=== PATIENT | male | born 1935 | race Caucasian/White ===

== ENCOUNTER → 2020-06-04 08:36 | Outpatient (BNVA) | payer MEDICARE, SELFPAY | PROVIDERS: PCP Internal Medicine; Visit Provider Internal Medicine | DX: Z95.2 Presence of prosthetic heart valve (principal); Z51.81 Encounter for therapeutic drug level monitoring; Z79.01 Long term (current) use of anticoagulants | CPT/HCPCS: 85610; 99211 ==

== ENCOUNTER → 2020-07-02 09:09 | Outpatient (BNVA) | payer MEDICARE, SELFPAY | PROVIDERS: PCP Internal Medicine; Visit Provider Internal Medicine | DX: Z95.2 Presence of prosthetic heart valve (principal); Z51.81 Encounter for therapeutic drug level monitoring; Z79.01 Long term (current) use of anticoagulants | CPT/HCPCS: 85610; 99211 ==

== ENCOUNTER → 2020-07-30 09:10 | Outpatient (BNVA) | payer MEDICARE, SELFPAY | PROVIDERS: PCP Internal Medicine; Visit Provider Internal Medicine | DX: Z95.2 Presence of prosthetic heart valve (principal); Z51.81 Encounter for therapeutic drug level monitoring; Z79.01 Long term (current) use of anticoagulants | CPT/HCPCS: 85610; 99211 ==

== ENCOUNTER → 2020-08-27 08:57 | Outpatient (BNVA) | payer MEDICARE, SELFPAY | PROVIDERS: PCP Internal Medicine; Visit Provider Internal Medicine | DX: Z95.2 Presence of prosthetic heart valve (principal); Z51.81 Encounter for therapeutic drug level monitoring; Z79.01 Long term (current) use of anticoagulants | CPT/HCPCS: 85610; 99211 ==

== ENCOUNTER → 2020-09-24 08:56 | Outpatient (BNVA) | payer MEDICARE, SELFPAY | PROVIDERS: PCP Internal Medicine; Visit Provider Internal Medicine | DX: Z95.2 Presence of prosthetic heart valve (principal); Z51.81 Encounter for therapeutic drug level monitoring; Z79.01 Long term (current) use of anticoagulants | CPT/HCPCS: 85610; 99211 ==

== ENCOUNTER → 2020-10-08 09:23 | Outpatient (BNVA) | payer MEDICARE, SELFPAY | PROVIDERS: PCP Internal Medicine; Visit Provider Internal Medicine | DX: Z95.2 Presence of prosthetic heart valve (principal); Z51.81 Encounter for therapeutic drug level monitoring; Z79.01 Long term (current) use of anticoagulants | CPT/HCPCS: 85610; 99211 ==

== ENCOUNTER → 2020-11-05 09:23 | Outpatient (BNVA) | payer MEDICARE, SELFPAY | PROVIDERS: PCP Internal Medicine; Visit Provider Internal Medicine | DX: Z95.2 Presence of prosthetic heart valve (principal); Z51.81 Encounter for therapeutic drug level monitoring; Z79.01 Long term (current) use of anticoagulants | CPT/HCPCS: 85610; 99211 ==

== ENCOUNTER → 2020-12-03 09:38 | Outpatient (BNVA) | payer MEDICARE, SELFPAY | PROVIDERS: PCP Internal Medicine; Visit Provider Internal Medicine | DX: Z95.2 Presence of prosthetic heart valve (principal); Z79.01 Long term (current) use of anticoagulants; Z51.81 Encounter for therapeutic drug level monitoring | CPT/HCPCS: 85610; 99211 ==

== ENCOUNTER → 2020-12-29 10:26 | Outpatient (BNVA) | payer MEDICARE, SELFPAY | PROVIDERS: PCP Internal Medicine; Visit Provider Internal Medicine | DX: Z95.2 Presence of prosthetic heart valve (principal); Z51.81 Encounter for therapeutic drug level monitoring; Z79.01 Long term (current) use of anticoagulants | CPT/HCPCS: 85610; 99211 ==

== ENCOUNTER → 2021-01-13 08:02 | Outpatient (BNVA) | payer MEDICARE, SELFPAY | PROVIDERS: PCP Internal Medicine; Visit Provider Internal Medicine | DX: Z95.2 Presence of prosthetic heart valve (principal); Z51.81 Encounter for therapeutic drug level monitoring; Z79.01 Long term (current) use of anticoagulants | CPT/HCPCS: 85610; 99211 ==

== ENCOUNTER → 2021-01-15 09:46 | Outpatient (BNVA) | payer MEDICARE, SELFPAY | PROVIDERS: PCP Internal Medicine; Visit Provider Internal Medicine | DX: Z95.2 Presence of prosthetic heart valve (principal); Z51.81 Encounter for therapeutic drug level monitoring; Z79.01 Long term (current) use of anticoagulants | CPT/HCPCS: 85610; 99211 ==

== ENCOUNTER → 2021-01-19 15:23 | Outpatient (BNVA) | payer MEDICARE, SELFPAY | PROVIDERS: PCP Internal Medicine; Visit Provider Internal Medicine | DX: Z95.2 Presence of prosthetic heart valve (principal); Z51.81 Encounter for therapeutic drug level monitoring; Z79.01 Long term (current) use of anticoagulants | CPT/HCPCS: 85610; 99211 ==

== ENCOUNTER → 2021-01-26 09:11 | Outpatient (BNVA) | payer MEDICARE, SELFPAY | PROVIDERS: PCP Internal Medicine; Visit Provider Internal Medicine | DX: Z95.2 Presence of prosthetic heart valve (principal); Z51.81 Encounter for therapeutic drug level monitoring; Z79.01 Long term (current) use of anticoagulants | CPT/HCPCS: 85610; 99211 ==

== ENCOUNTER → 2021-02-24 09:39 | Outpatient (BNVA) | payer MEDICARE, SELFPAY | PROVIDERS: PCP Internal Medicine; Visit Provider Internal Medicine | DX: Z95.2 Presence of prosthetic heart valve (principal); Z51.81 Encounter for therapeutic drug level monitoring; Z79.01 Long term (current) use of anticoagulants | CPT/HCPCS: 85610; 99211 ==

== ENCOUNTER → 2021-03-24 08:57 | Outpatient (BNVA) | payer MEDICARE, SELFPAY | PROVIDERS: PCP Internal Medicine; Visit Provider Internal Medicine | DX: Z95.2 Presence of prosthetic heart valve (principal); Z79.01 Long term (current) use of anticoagulants; Z51.81 Encounter for therapeutic drug level monitoring | CPT/HCPCS: 85610; 99211 ==

== ENCOUNTER → 2021-04-21 09:30 | Outpatient (BNVA) | payer MEDICARE, SELFPAY | PROVIDERS: PCP Internal Medicine; Visit Provider Internal Medicine | DX: Z95.2 Presence of prosthetic heart valve (principal); Z51.81 Encounter for therapeutic drug level monitoring; Z79.01 Long term (current) use of anticoagulants | CPT/HCPCS: 85610; 99211 ==

== ENCOUNTER → 2021-05-05 14:03 | Outpatient (BNVA) | payer MEDICARE, SELFPAY | PROVIDERS: PCP Internal Medicine; Visit Provider Internal Medicine | DX: Z95.2 Presence of prosthetic heart valve (principal); Z51.81 Encounter for therapeutic drug level monitoring; Z79.01 Long term (current) use of anticoagulants | CPT/HCPCS: 85610; 99211 ==

== ENCOUNTER → 2021-05-27 14:49 | Outpatient (BNVA) | payer MEDICARE, SELFPAY | PROVIDERS: PCP Internal Medicine; Visit Provider Internal Medicine | DX: Z95.2 Presence of prosthetic heart valve (principal); Z51.81 Encounter for therapeutic drug level monitoring; Z79.01 Long term (current) use of anticoagulants | CPT/HCPCS: 85610; 99211 ==

== ENCOUNTER → 2021-06-03 08:36 | Outpatient (BNVA) | payer MEDICARE, SELFPAY | PROVIDERS: PCP Internal Medicine; Visit Provider Internal Medicine | DX: Z95.2 Presence of prosthetic heart valve (principal); Z51.81 Encounter for therapeutic drug level monitoring; Z79.01 Long term (current) use of anticoagulants | CPT/HCPCS: 85610; 99211 ==

== ENCOUNTER → 2021-06-29 08:56 | Outpatient (BNVA) | payer MEDICARE, SELFPAY | PROVIDERS: PCP Internal Medicine; Visit Provider Internal Medicine | DX: Z95.2 Presence of prosthetic heart valve (principal); Z51.81 Encounter for therapeutic drug level monitoring; Z79.01 Long term (current) use of anticoagulants | CPT/HCPCS: 85610; 99211 ==

== ENCOUNTER → 2021-07-20 09:37 | Outpatient (BNVA) | payer MEDICARE, SELFPAY | PROVIDERS: PCP Internal Medicine; Visit Provider Internal Medicine | DX: Z95.2 Presence of prosthetic heart valve (principal); Z51.81 Encounter for therapeutic drug level monitoring; Z79.01 Long term (current) use of anticoagulants | CPT/HCPCS: 85610; 99211 ==

== ENCOUNTER → 2021-08-19 14:09 | Outpatient (BNVA) | payer MEDICARE, SELFPAY | PROVIDERS: PCP Internal Medicine; Visit Provider Internal Medicine | DX: Z95.2 Presence of prosthetic heart valve (principal); Z51.81 Encounter for therapeutic drug level monitoring; Z79.01 Long term (current) use of anticoagulants | CPT/HCPCS: 85610; 99211 ==

== ENCOUNTER → 2021-09-15 10:09 | Outpatient (BNVA) | payer MEDICARE, SELFPAY | PROVIDERS: PCP Internal Medicine; Visit Provider Internal Medicine | DX: Z95.2 Presence of prosthetic heart valve (principal); Z51.81 Encounter for therapeutic drug level monitoring; Z79.01 Long term (current) use of anticoagulants | CPT/HCPCS: 85610; 99211 ==

== ENCOUNTER → 2021-10-13 08:50 | Outpatient (BNVA) | payer MEDICARE, SELFPAY | PROVIDERS: PCP Internal Medicine; Visit Provider Internal Medicine | DX: Z95.2 Presence of prosthetic heart valve (principal); Z51.81 Encounter for therapeutic drug level monitoring; Z79.01 Long term (current) use of anticoagulants | CPT/HCPCS: 85610; 99211 ==

== ENCOUNTER → 2021-11-06 09:28 | Outpatient (BNVA) | payer MEDICARE, SELFPAY | PROVIDERS: PCP Internal Medicine; Visit Provider Internal Medicine | DX: Z95.2 Presence of prosthetic heart valve (principal); Z51.81 Encounter for therapeutic drug level monitoring; Z79.01 Long term (current) use of anticoagulants | CPT/HCPCS: 85610; 99211 ==

== ENCOUNTER → 2021-11-23 09:39 | Outpatient (BNVA) | payer MEDICARE, SELFPAY | PROVIDERS: PCP Internal Medicine; Visit Provider Internal Medicine | DX: Z95.2 Presence of prosthetic heart valve (principal); Z79.01 Long term (current) use of anticoagulants; Z51.81 Encounter for therapeutic drug level monitoring | CPT/HCPCS: 85610; 99211 ==

== ENCOUNTER → 2021-12-16 09:18 | Outpatient (BNVA) | payer MEDICARE, SELFPAY | PROVIDERS: PCP Internal Medicine; Visit Provider Internal Medicine | DX: Z95.2 Presence of prosthetic heart valve (principal); Z79.01 Long term (current) use of anticoagulants; Z51.81 Encounter for therapeutic drug level monitoring | CPT/HCPCS: 85610; 99211 ==

== ENCOUNTER → 2022-01-20 10:43 | Outpatient (BNVA) | payer MEDICARE, SELFPAY | PROVIDERS: PCP Internal Medicine; Visit Provider Internal Medicine | DX: Z95.2 Presence of prosthetic heart valve (principal); Z79.01 Long term (current) use of anticoagulants; Z51.81 Encounter for therapeutic drug level monitoring | CPT/HCPCS: 85610; 99211 ==

== ENCOUNTER → 2022-02-17 10:31 | Outpatient (BNVA) | payer MEDICARE, SELFPAY | PROVIDERS: PCP Internal Medicine; Visit Provider Internal Medicine | DX: Z95.2 Presence of prosthetic heart valve (principal); Z51.81 Encounter for therapeutic drug level monitoring; Z79.01 Long term (current) use of anticoagulants | CPT/HCPCS: 85610; 99211 ==

== ENCOUNTER → 2022-02-19 08:10 | Outpatient (BNVA) | payer MEDICARE, SELFPAY | PROVIDERS: PCP Internal Medicine; Visit Provider Internal Medicine | DX: Z95.2 Presence of prosthetic heart valve (principal); Z79.01 Long term (current) use of anticoagulants; Z51.81 Encounter for therapeutic drug level monitoring | CPT/HCPCS: 85610; 99211 ==

== ENCOUNTER → 2022-02-25 09:29 | Outpatient (BNVA) | payer MEDICARE, SELFPAY | PROVIDERS: PCP Internal Medicine; Visit Provider Internal Medicine | DX: Z95.2 Presence of prosthetic heart valve (principal); Z51.81 Encounter for therapeutic drug level monitoring; Z79.01 Long term (current) use of anticoagulants | CPT/HCPCS: 85610; 99212 ==

== ENCOUNTER → 2022-03-02 13:00 | Outpatient (BNVA) | payer MEDICARE, SELFPAY | PROVIDERS: PCP Internal Medicine; Visit Provider Internal Medicine | DX: Z95.2 Presence of prosthetic heart valve (principal); Z51.81 Encounter for therapeutic drug level monitoring; Z79.01 Long term (current) use of anticoagulants | CPT/HCPCS: 85610; 99211 ==

== ENCOUNTER → 2022-03-09 09:37 | Outpatient (BNVA) | payer MEDICARE, SELFPAY | PROVIDERS: PCP Internal Medicine; Visit Provider Internal Medicine | DX: Z95.2 Presence of prosthetic heart valve (principal); Z79.01 Long term (current) use of anticoagulants; Z51.81 Encounter for therapeutic drug level monitoring | CPT/HCPCS: 85610; 99211 ==

== ENCOUNTER → 2022-03-16 09:44 | Outpatient (BNVA) | payer MEDICARE, SELFPAY | PROVIDERS: PCP Internal Medicine; Visit Provider Internal Medicine | DX: Z95.2 Presence of prosthetic heart valve (principal); Z79.01 Long term (current) use of anticoagulants; Z51.81 Encounter for therapeutic drug level monitoring | CPT/HCPCS: 85610; 99211 ==

== ENCOUNTER → 2022-04-02 09:36 | Outpatient (BNVA) | payer MEDICARE, SELFPAY | PROVIDERS: PCP Internal Medicine; Visit Provider Internal Medicine | DX: Z95.2 Presence of prosthetic heart valve (principal); Z79.01 Long term (current) use of anticoagulants; Z51.81 Encounter for therapeutic drug level monitoring | CPT/HCPCS: 85610; 99211 ==

== ENCOUNTER → 2022-04-22 13:33 | Outpatient (BNVA) | payer MEDICARE, SELFPAY | PROVIDERS: PCP Internal Medicine; Visit Provider Internal Medicine | DX: Z95.2 Presence of prosthetic heart valve (principal); Z79.01 Long term (current) use of anticoagulants; Z51.81 Encounter for therapeutic drug level monitoring | CPT/HCPCS: 85610; 99211 ==

== ENCOUNTER → 2022-04-27 09:41 | Outpatient (BNVA) | payer MEDICARE, SELFPAY | PROVIDERS: PCP Internal Medicine; Visit Provider Internal Medicine | DX: Z95.2 Presence of prosthetic heart valve (principal); Z79.01 Long term (current) use of anticoagulants; Z51.81 Encounter for therapeutic drug level monitoring | CPT/HCPCS: 85610; 99211 ==

== ENCOUNTER → 2022-05-11 09:29 | Outpatient (BNVA) | payer MEDICARE, SELFPAY | PROVIDERS: PCP Internal Medicine; Visit Provider Internal Medicine | DX: Z95.2 Presence of prosthetic heart valve (principal); Z79.01 Long term (current) use of anticoagulants; Z51.81 Encounter for therapeutic drug level monitoring | CPT/HCPCS: 85610; 99211 ==

== ENCOUNTER → 2022-05-27 10:13 | Outpatient (BNVA) | payer MEDICARE, SELFPAY | PROVIDERS: PCP Internal Medicine; Visit Provider Internal Medicine | DX: Z95.2 Presence of prosthetic heart valve (principal); Z79.01 Long term (current) use of anticoagulants; Z51.81 Encounter for therapeutic drug level monitoring | CPT/HCPCS: 85610; 99211 ==

== ENCOUNTER → 2022-05-31 11:26 | Outpatient (BNVA) | payer MEDICARE, SELFPAY | PROVIDERS: PCP Internal Medicine; Visit Provider Internal Medicine | DX: Z95.2 Presence of prosthetic heart valve (principal); Z79.01 Long term (current) use of anticoagulants; Z51.81 Encounter for therapeutic drug level monitoring | CPT/HCPCS: 85610; 99211 ==

== ENCOUNTER → 2022-06-08 11:12 | Outpatient (BNVA) | payer MEDICARE, SELFPAY | PROVIDERS: PCP Internal Medicine; Visit Provider Internal Medicine | DX: I26.99 Other pulmonary embolism without acute cor pulmonale (principal); Z79.01 Long term (current) use of anticoagulants; Z51.81 Encounter for therapeutic drug level monitoring | CPT/HCPCS: 85610; 99211 ==

== ENCOUNTER → 2022-06-22 09:16 | Outpatient (BNVA) | payer MEDICARE, SELFPAY | PROVIDERS: PCP Internal Medicine; Visit Provider Internal Medicine | DX: Z79.01 Long term (current) use of anticoagulants (principal) | CPT/HCPCS: 85610; 99211 ==

== ENCOUNTER 2022-06-22 09:52 | Outpatient (REF) | payer MEDICARE, SELFPAY ==
--- NOTE | ~2022-06-22 | XR_ITS ---
EXAMINATION: XR CHEST CLINICAL INFORMATION: Asbestos exposure COMPARISON: Previous chest CT from 2013 and chest x-ray from 2012 TECHNIQUE: 2 views of the chest were obtained. FINDINGS: The cardiac silhouette is enlarged. Hilar and mediastinal contours are unremarkable. There are extensive bilateral calcified pleural plaques. This appears increased from 2012 chest x-ray. There is new blunting at the costophrenic angles questionable for small bilateral pleural effusions or pleural thickening. There is question of increasing airspace disease at the right lung base versus increasing interstitial disease. There are degenerative changes of the spine. There are median sternotomy wires. XR/XR chest 2V IMPRESSION: Increasing bilateral calcified pleural plaques. Question increasing airspace disease at the right lung base versus increasing interstitial disease. New blunting at the costophrenic angles questionable for small bilateral pleural effusions or pleural thickening. Findings could be better assessed with chest CT scan if clinically indicated.
== END 2022-06-22 09:53 | disposition home or self-care (01) ==
LOC: HO.XRAY 09:52
PROVIDERS: PCP Internal Medicine; Visit Provider Internal Medicine
DX: Z77.090 Contact with and (suspected) exposure to asbestos (principal); Z95.2 Presence of prosthetic heart valve; Z51.81 Encounter for therapeutic drug level monitoring; Z79.01 Long term (current) use of anticoagulants
CPT/HCPCS: 71046; 85610; 99211

== ENCOUNTER → 2022-07-02 08:52 | Outpatient (BNVA) | payer MEDICARE, SELFPAY | PROVIDERS: PCP Internal Medicine; Visit Provider Internal Medicine | DX: Z95.2 Presence of prosthetic heart valve (principal); Z79.01 Long term (current) use of anticoagulants; Z51.81 Encounter for therapeutic drug level monitoring | CPT/HCPCS: 85610; 99211 ==

== ENCOUNTER → 2022-07-13 09:42 | Outpatient (BNVA) | payer MEDICARE, SELFPAY | PROVIDERS: PCP Internal Medicine; Visit Provider Internal Medicine | DX: Z95.2 Presence of prosthetic heart valve (principal); Z79.01 Long term (current) use of anticoagulants; Z51.81 Encounter for therapeutic drug level monitoring | CPT/HCPCS: 85610; 99211 ==

== ENCOUNTER 2022-07-21 08:42 | Outpatient (REF) | payer MEDICARE, SELFPAY ==
--- NOTE | ~2022-07-21 | CT_ITS ---
EXAMINATION: CT CHEST WITH CONTRAST CLINICAL INFORMATION: Pleural plaque. COMPARISON: Chest x-ray 06/22/[address] chest 02/02/2013 TECHNIQUE: Multidetector volumetric CT imaging of the chest was obtained after the administration of 65 mL of Omnipaque 350 intravenous contrast without immediate adverse reactions. Axial MIP volume rendering provided. Sagittal and coronal reformatted images were obtained. This CT examination was performed using dose optimization techniques as appropriate, variously including the following: *Automated exposure control *Adjustment of mA and/or kV according to patient size (this includes techniques or standardized protocols for targeted exams where dose is matched to indication/reason for exam; i.e. extremities or head) *Use of iterative reconstruction technique DLP: 80 mGy-cm FINDINGS: OFFICIAL GREETER: Hyperinflated lungs with scattered patchy opacities in both mid and lower lobes and pleural calcified plaques. LUNGS: Mild centrilobular emphysematous changes of both lungs without acute pneumonic consolidation. There is a minimal subpleural reticular thickening seen in both lower lobes and both upper lobes likely chronic changes. No large pulmonary nodule or mass visualized. Previously visualized 2 pulmonary nodules in left lower lobe are not seen at this time. There is a 4 mm nodule adjacent to major fissure in right lower lobe axial image 104/6 and a 3 mm nodule right lung base image 124/6. There are no new nodules visualized. MEDIASTINUM: The thyroid lobes are symmetrical. The central trachea and the bronchi widely patent. Heart size and the great vessels are normal caliber. There is an ectatic right brachiocephalic artery. Small shotty lymph nodes are seen in the para-aortic space and anterior mediastinum. The largest precarinal lymph node measures 1.5 x 1.0 cm and is stable 10/04/2012 CT exam. Significant coronary artery calcifications are present. No pericardial effusion seen. PLEURA: There is extensive calcified pleural plaque seen bilaterally which has significantly increased in thickness and number. There is associated bilateral posterior pleural thickening but no effusion seen. The calcifications most pronounced along the diaphragmatic pleura bilaterally. AXILLA: Small shotty lymph nodes are seen in bilateral axilla. UPPER ABDOMEN: Visualized liver, spleen, pancreas and bilateral adrenal glands are unremarkable. There is no radiopaque gallstones. OSSEOUS STRUCTURES: There is exaggerated thoracic kyphosis with mild ventral spondylosis. No aggressive lytic or sclerotic process seen. There are median sternotomy sutures from previous intervention. CT/CT chest w IV con IMPRESSION: 1. Diffuse emphysema with increase interstitial markings subpleural based in both lower lobes and both upper lobes consistent progression. The pulmonary nodules are stable. 2. There is extensive pleural calcification bilaterally with increase in the thickness of calcification and associated pleural thickening but no pleural effusion or pneumothorax. 3. There is reactive lymphadenopathy in the mediastinum. Fleischner guidelines were followed.
[2022-07-21 10:20] LABS: Anion Gap 11 (12-20); Blood Urea Nitrogen 24 mg/dL (9-16); Calcium 8.8 mg/dL (8.4-10.2); Carbon Dioxide 29 mmol/L (22-29); Chloride 103 mmol/L (96-108); Estimated Glomerular Filt Rate > 60; Glucose Random 88 mg/dL (60-115); Potassium 4.4 mmol/L (3.3-5.1); Sodium 139 mmol/L (135-145)
[2022-07-21] MEDS: iohexoL 350 MG/ML 100 ML INFUS..BTL IV (11:14)
== END 2022-07-21 08:43 | disposition home or self-care (01) ==
LOC: HO.CT 08:42
PROVIDERS: PCP Internal Medicine; Visit Provider Internal Medicine
DX: J92.9 Pleural plaque without asbestos (principal); I48.21 Permanent atrial fibrillation; I10 Essential (primary) hypertension
CPT/HCPCS: 36415; 71260; 80048; Q9967

== ENCOUNTER → 2022-07-23 09:36 | Outpatient (BNVA) | payer MEDICARE, SELFPAY | PROVIDERS: PCP Internal Medicine; Visit Provider Internal Medicine | DX: Z95.2 Presence of prosthetic heart valve (principal); Z79.01 Long term (current) use of anticoagulants; Z51.81 Encounter for therapeutic drug level monitoring | CPT/HCPCS: 85610; 99211 ==

== ENCOUNTER → 2022-08-05 09:21 | Outpatient (BNVA) | payer MEDICARE, SELFPAY | PROVIDERS: PCP Internal Medicine; Visit Provider Internal Medicine | DX: Z95.2 Presence of prosthetic heart valve (principal); Z79.01 Long term (current) use of anticoagulants; Z51.81 Encounter for therapeutic drug level monitoring | CPT/HCPCS: 85610; 99211 ==

== ENCOUNTER → 2022-08-11 09:47 | Outpatient (REF) | payer MEDICARE, SELFPAY ==
[2022-08-11 09:37] LABS: MANUAL DIFF FLAG NO
--- NOTE | 2022-08-11 09:41 | CA_ITS ---
Transthoracic Echocardiogram Patient (Last, First, Middle): Tucker Monge W Gender: Male Date of : 1935 Age: 86 Procedure Date: 08/11/2022 Procedure Type: Transthoracic Echocardiogram Location: OP Height: 165.1 cm Weight: 62.6 kg BSA: 1.69 m2 Heart Rate: bpm BP: 122 / 70 mmHg Preflight Mechanic: Referring MD: Alex Thacker MD Senior Web Applications Developer: Jonnathan Bowling MD Symptoms: R06.09 ZARATE Z95.2 PROSTHETIC HEART VALVE, I34.0 MV INSUFF Study Quality: Adequate ECG Rhythm: Atrial Fibrillation Conclusions: - 1. Mildly reduced LV systolic dysfunction with LVEF of 45-50% with mild LVH 2. Moderate RV dilatation with RV systolic dysfunction 3. Severely dilated left atrium 4. Normal functioning mechanical aortic valve 5. at least moderate mitral regurgitation 6. Moderate tricuspid regurgitation with moderately elevated right ventricular systolic pressure 7. Mildly dilated ascending aorta 3.9 cm 8. No gross pericardial effusion Findings Left Ventricle Normal left ventricular cavity size. There is mildly increased left ventricular wall thickness. The left ventricular systolic function is mildly decreased. The visually estimated ejection fraction is between 45-50%. Diastolic function is indeterminate on the basis of available data. Right Ventricle Moderately increased right ventricular cavity size. There is moderately decreased right ventricular systolic function. Atria The left atrium is severely dilated. Interatrial shunt cannot be excluded. The right atrium is moderately dilated. Aortic Valve A mechanical prosthetic aortic valve is present. The prosthetic aortic valve appears to be functioning normally. There is trace (trivial) aortic valve regurgitation. Mitral Valve There is moderate anterior and posterior mitral leaflet thickening. There is moderate mitral valve regurgitation. There is no mitral valve stenosis. Pulmonic Valve The pulmonic valve was not well visualized. Tricuspid Valve There is moderate tricuspid valve regurgitation. Normal right atrial pressure. Moderate pulmonary hypertension is present. Great Vessels The pulmonary artery was not well visualized. There is mild dilatation of the ascending aorta measuring 3.90 cm. Venous The inferior vena cava is normal in size and collapses greater than 50% with inspiration. Pericardium/Pleural There is no evidence of pericardial effusion. Prior Study Comparison Changes noted compared to prior study dated: 05/18/2021. Compared to prior study at an outside institution, LV systolic function is reduced and RV systolic pressure is elevated Measurements 2D Linear Measurements IVSd: 1.29 0.6-0.9/0.6-1.0 cm LVIDd: 4.13 3.9-5.3/4.2-5.9 cm LVIDd Index: 2.44 2.4-3.2/2.2-3.1 cm/m2 LVIDs: 2.97 2.0-3.6 cm LVPWd: 1.30 0.7-1.1 cm Ao Root: 3.80 2.1-3.5 cm LA Diam: 4.30 2.7-3.8/3.0-4.0 cm LAIDs Index: 2.54 1.5-2.3 cm/m2 LV Mass: 242.34 67-162/88-224 g LV Mass Index: 143.40 43-95/49-115 g/m2 LVOT Diam: 2.20 3.0+(-)1.3 cm 2D Systolic Function EF 4C: 43.40 >55% EF 2C: 50.10 >55% EF BiP: 45.50 >55% Mitral Valve MV Pk E: 1.21 MV Decel Time: 143.00 E'Lateral: 9.46 E'Medial: 6.85 E/E' Med: 17.70 E/E' Lat: 12.80 PHT: 42.00 MVA PHT: 5.24 Decel [place]: 8.44 Aortic Valve AoV Pk Duarte: 1.24 AoV Mn Duarte: 0.78 AoV VTI: 0.21 AoV Pk Grad: 6.00 Aov Mn Grad: 3.00 KELLY Cont.VTI: 2.13 LVOT LVOT Pk Duarte: 0.66 LVOT Mn Duarte: 0.40 LVOT VTI: 0.12 LVOT Pk Grad: 2.00 LVOT Mn Grad: 1.00 LVOT Diam: 2.20 LVOT Area: 3.80 Diastolic Function MV Pk E: 1.21 E'Medial: 6.85 E/E' Med: 17.70 E' Laterial: 9.46 E/E' Lat: 12.80 Right Ventricle TAPSE (mm): 14.30 TVS' Duarte: 6.74 Tricuspid Valve TR Pk Duarte: 3.65 TR Pk Grad: 53.00 RA Press: 3.00 RVSP: 56.00 Great Vessels Aorta Ao Root-2D: 3.80 2.0-3.7 cm Ao Asc: 3.90 2.1-3.4 cm Pulmonary Valve PV Pk Duarte: 0.53 Peak PV Grad: 1.00 Updated in Other Vendor System with Status of Final Jonnathan Bowling MD electronically signed on 08/11/2022 5:16:44 PM with status of Final
[2022-08-11 10:11] LABS: Basophils Absolute Auto 0.1 X10*3/uL (0.0-0.2); Basophils Percent Auto 0.8 % (0-2); Eosinophils Absolute Auto 0.1 X10*3/uL (0.0-0.4); Hematocrit 36.4 % (42.0-52.0); Hemoglobin 11.6 g/dl (14.0-18.0); Imm Gran Abs Auto 0.02 X10*3/uL (0.00-0.03); Imm Gran Pct Auto 0.3 % (0.0-0.4); Lymphocytes Absolute Auto 1.4 X10*3/uL (1.2-4.9); Lymphocytes Percent Auto 22.6 % (20-40); Mean Corpuscular HGB Conc 31.9 g/dl (31.0-36.0); Mean Corpuscular Volume 100.6 fL (80.0-98.0); Mean Platelet Volume 9.8 fL (9.4-12.4); Monocytes Absolute Auto 0.6 X10*3/uL (0.1-1.2); Monocytes Percent Auto 8.9 % (2-11); Neutrophils Absolute Auto 4.2 x10*3/uL (2.0-8.3); Neutrophils Percent Auto 66.4 % (45-73); Platelet Count 167 X10*3/uL (160-400); Red Blood Count 3.62 X10*6/uL (4.60-5.80); Red Cell Distribution Width 15.3 % (11.0-16.0); White Blood Count 6.3 X10*3/uL (4.8-10.8)
[2022-08-11 11:09] LABS: Alanine Aminotransferase 41 U/L (0-40); Albumin Level 3.7 g/dL (3.5-5.0); Alkaline Phosphatase 98 U/L (39-117); Anion Gap 13 (12-20); Aspartate Amino Transferase 32 U/L (5-37); Bilirubin Total 0.5 mg/dL (0.0-1.0); Blood Urea Nitrogen 24 mg/dL (9-16); Calcium 8.8 mg/dL (8.4-10.2); Carbamazepine Tegretol 4.3 mcg/mL (5.0-12.0); Carbon Dioxide 26 mmol/L (22-29); Chloride 106 mmol/L (96-108); Estimated Glomerular Filt Rate 57; Glucose Random 100 mg/dL (60-115); Potassium 4.2 mmol/L (3.3-5.1); Sodium 141 mmol/L (135-145); Thyroid Stimulating Hormone 2.59 uIU/mL (0.32-4.0); Total Protein 6.8 g/dL (6.5-8.0)
[2022-08-11 11:19] LABS: Vitamin B12 > 2000 pg/mL (200-900)
== END ==
LOC: HO.CARD 09:47
PROVIDERS: PCP Internal Medicine; Visit Provider Internal Medicine
DX: R06.09 Other forms of dyspnea (principal); I34.0 Nonrheumatic mitral (valve) insufficiency; Z95.2 Presence of prosthetic heart valve
CPT/HCPCS: 36415; 80053; 80156; 82607; 84443; 85025; 93306

== ENCOUNTER → 2022-08-20 11:19 | Outpatient (BNVA) | payer MEDICARE, SELFPAY | PROVIDERS: PCP Internal Medicine; Visit Provider Internal Medicine Pulmonary Disease | DX: J61 Pneumoconiosis due to asbestos and other mineral fibers (principal); R06.09 Other forms of dyspnea; Z99.81 Dependence on supplemental oxygen | CPT/HCPCS: 94618; 99202 ==

== ENCOUNTER → 2022-08-24 09:45 | Outpatient (BNVA) | payer MEDICARE, SELFPAY | PROVIDERS: PCP Internal Medicine; Visit Provider Internal Medicine | DX: Z95.2 Presence of prosthetic heart valve (principal); Z79.01 Long term (current) use of anticoagulants; Z51.81 Encounter for therapeutic drug level monitoring | CPT/HCPCS: 99211 ==

== ENCOUNTER 2022-08-27 15:30 | Outpatient (REF) | payer MEDICARE, SELFPAY ==
--- NOTE | 2022-08-27 17:28 | PFT_ITS ---
FLOWS: FEV1 48% of predicted at 0.95 L. FVC 47% of predicted at 1.38 L. FEV1 to FVC ratio of 0.69. No bronchodilator response. LUNG VOLUMES: Total lung capacity 53% of predicted at 3.27 L. Residual volume 70% of predicted at 1.77 L. Slow vital capacity 42% of predicted at 1.50 L. Expiratory reserve volume 18% of predicted at 0.14 L. Diffusion capacity is moderately decreased, diffusion capacity corrects to normal after adjustment for alveolar ventilation. 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 Decreased diffusion capacity together with restrictive ventilatory defect. Suggests underlying pulmonary parenchymal disease. Clinical correlation is advised. MD JENIFER Mayen/MODL / [id number]
== END 2022-08-27 15:31 | disposition home or self-care (01) ==
LOC: HO.RESP 15:30
PROVIDERS: Visit Provider Internal Medicine Pulmonary Disease
DX: R06.09 Other forms of dyspnea (principal); J61 Pneumoconiosis due to asbestos and other mineral fibers; Z95.2 Presence of prosthetic heart valve; Z51.81 Encounter for therapeutic drug level monitoring; Z79.01 Long term (current) use of anticoagulants
CPT/HCPCS: 85610; 94060; 94727; 94729; 99211

== ENCOUNTER 2022-09-03 11:23 | Outpatient (REF) | payer MEDICARE, SELFPAY ==
[2022-09-03 11:59] LABS: Prothrombin Time 69.7 SEC (10.0-13.1)
[2022-09-03 12:02] LABS: INTERNATIONAL NORM RATIO 5.6 (0.9-1.1)
== END 2022-09-03 11:24 | disposition home or self-care (01) ==
LOC: HO.LAB 11:23
PROVIDERS: PCP Internal Medicine; Visit Provider Internal Medicine
DX: Z95.2 Presence of prosthetic heart valve (principal); Z79.01 Long term (current) use of anticoagulants; Z51.81 Encounter for therapeutic drug level monitoring
CPT/HCPCS: 36415; 85610; 99212

== ENCOUNTER → 2022-09-06 09:32 | Outpatient (BNVA) | payer MEDICARE, SELFPAY | PROVIDERS: PCP Internal Medicine; Visit Provider Internal Medicine | DX: Z95.2 Presence of prosthetic heart valve (principal); Z79.01 Long term (current) use of anticoagulants; Z51.81 Encounter for therapeutic drug level monitoring | CPT/HCPCS: 85610; 99211 ==

== ENCOUNTER → 2022-09-10 09:42 | Outpatient (BNVA) | payer MEDICARE, SELFPAY | PROVIDERS: PCP Internal Medicine; Visit Provider Internal Medicine | DX: Z95.2 Presence of prosthetic heart valve (principal); Z79.01 Long term (current) use of anticoagulants; Z51.81 Encounter for therapeutic drug level monitoring | CPT/HCPCS: 85610; 99211 ==

== ENCOUNTER → 2022-09-13 09:23 | Outpatient (BNVA) | payer MEDICARE, SELFPAY | PROVIDERS: PCP Internal Medicine; Visit Provider Internal Medicine | DX: Z95.2 Presence of prosthetic heart valve (principal); Z79.01 Long term (current) use of anticoagulants; Z51.81 Encounter for therapeutic drug level monitoring | CPT/HCPCS: 85610; 99211 ==

== ENCOUNTER 2022-09-20 10:57 | Emergency (ER) | payer MEDICARE, SELFPAY ==
--- NOTE | 2022-09-20 | ECG_ITS ---
Test Reason : chest pain Blood Pressure : / mmHG Vent. Rate : 089 BPM Atrial Rate : 000 BPM P-R Int : 000 ms QRS Dur : 094 ms QT Int : 374 ms P-R-T Axes : 000 -52 136 degrees QTc Int : 455 ms Atrial fibrillation Left axis deviation Left ventricular hypertrophy ( Dominic product , Romhilt-Rubin ) Nonspecific ST and T wave abnormality Abnormal ECG When compared with ECG of 17-SEP-2013 13:31, Atrial fibrillation has replaced Sinus rhythm QRS axis Shifted left Nonspecific T wave abnormality now evident in Inferior leads Referred By: Generic ED Physician Electronically Signed By:CYNTHIA SPARROW MD
--- NOTE | ~2022-09-20 | XR_ITS ---
EXAMINATION: XR RIBS, RIGHT CLINICAL INFORMATION: Fall and injury. COMPARISON: June 22, 2022 TECHNIQUE: PA chest and 3 views of the right ribs. FINDINGS: PA film of the chest demonstrates enlargement of the cardiopericardial silhouette. No evidence of pulmonary edema. Patient status post median sternotomy. There are numerous bilateral extensive calcified pleural and diaphragmatic plaques consistent with previous asbestosis exposure. No significant pleural effusion is identified. No definite new region of confluent airspace disease is appreciated. There appear to be nondisplaced fractures involving the anterolateral aspects of the right sixth and seventh ribs. The seventh rib fracture appears to be U. I cannot tell if the sixth rib fracture is acute or chronic. No pneumothorax is seen. XR/XR ribs RT min 3V w CXR1V IMPRESSION: Diffuse calcified pleural plaques consistent with previous asbestos exposure. Fractures of the right sixth and seventh ribs without pneumothorax.
--- NOTE | ~2022-09-20 | CT_ITS ---
EXAMINATION: CT HEAD WITHOUT CONTRAST CLINICAL INFORMATION: Trauma. On blood thinners. COMPARISON: MRI dated April 24, 2018. CT scan dated June 05, 2010. TECHNIQUE: Contiguous axial imaging was performed from the skull base to vertex without intravenous administration of contrast. This CT examination was performed using dose optimization techniques as appropriate, variously including the following: *Automated exposure control *Adjustment of mA and/or kV according to patient size (this includes techniques or standardized protocols for targeted exams where dose is matched to indication/reason for exam; i.e. extremities or head) *Use of iterative reconstruction technique DLP: 792 mGy-cm FINDINGS: No intracranial hemorrhage, large infarction, or mass lesion is seen. Age-appropriate cortical atrophy and chronic periventricular white matter ischemic changes. No extra-axial collection is appreciated. The ventricles are normal in size and configuration without evidence of hydrocephalus. Calcification of the distal vertebral and distal internal carotid arteries, bilaterally. The visualized paranasal sinuses and mastoid air cells are clear. CT/CT head/brain wo IV con IMPRESSION: No acute intracranial finding.
[2022-09-20 11:03] VITALS: BP 124/72; PULSE 113; RESP 18; TEMP 36.6; O2SAT 98; BMI 20.1
--- NOTE | 2022-09-20 11:37 | ED.FALL ---
HPI - Fall General Chief Complaint: Fall Stated Complaint: fall Time Seen by Provider: 09/20/22 11:25 Source: patient and family Mode of arrival: ambulatory Limitations: other (dementia) History of Present Illness HPI Narrative: patient fell out of bed yesterday, no LOC, he has skin tears, his INR has been running high. complaint: fall Onset (ago): day(s) Fall from: out of bed Fall witnessed: yes, by family Place fall occurred: home Loss of consciousness: none Prolonged down time: no Symptoms prior to fall: none Related Data Home Medications Medication Instructions Recorded Confirmed ipratropium bromide 21 mcg (0.03 intranasal 07/30/20 09/13/22 %) nasal spray memantine 5 mg tablet 5 mg PO BID 07/30/20 09/13/22 carbamazepine 200 mg tablet 200 mg PO TID 08/27/20 09/13/22 warfarin 2 mg tablet 2 mg PO 10/08/20 09/13/22 donepezil 10 mg tablet 10 mg PO DAILY 12/03/20 09/13/22 sertraline 50 mg tablet 50 mg PO DAILY 12/03/20 09/13/22 vitamin B 12 PO 12/29/20 09/13/22 losartan 25 mg tablet 25 mg PO DAILY 02/17/22 09/13/22 aspirin 81 mg tablet,delayed 81 mg PO DAILY 02/25/22 09/13/22 release iron 60mg PO 02/25/22 09/13/22 furosemide 20 mg tablet 20 mg PO DAILY 03/02/22 09/13/22 metoprolol succinate 25 mg 50 mg PO DAILY 03/02/22 09/13/22 tablet,extended release 24 hr warfarin 5 mg tablet 5 mg PO DAILY 08/24/22 09/13/22 amoxicillin 500 mg tablet 1,000 mg PO BID 09/10/22 09/13/22 Allergies Allergy/AdvReac Type Severity Reaction Status Date / Time No Known Allergies Allergy Verified 09/13/22 09:56 Review of Systems Review of Systems: Yes all other systems are reviewed and are negative Integumentary/Breasts: Comments: skin tears Neurologic: Denies Sensory deficit (Neuro) PMFSH Social History Social History Advance Directives: Yes Advance Directives on File: No Physical Exam Vital Signs: Vital Signs: Last Vital Signs Temp 98 F 09/20/22 11:03 Pulse 113 H 09/20/22 11:03 Resp 18 09/20/22 11:03 BP 124/72 09/20/22 11:03 Pulse Ox 98 09/20/22 11:03 O2 Del Method 09/20/22 11:03 BMI result Body Mass Index 20.1 Const: Other: elderly very thin Nutritional Appearance: average body habitus Orientation/consciousness: oriented to person Limitations: other limitations (dementia) HEENT: Head: Yes normal to inspection Ears: external ears normal General nose exam: Normal external nose present Mouth: Normal oral and palatal mucosa present and oropharynx normal Throat: Yes posterior oropharynx normal Eyes: General: appearance normal, both eyes and all related structures Neck: Other: supple Neck: Yes normal visual inspection Chest: Other: right rib tenderness Resp: Auscultation: clear to auscultation bilaterally Cardio: Jugular venous distension: no JVD Rate: regular rate Rhythm: regular rhythm Heart sounds: S1 normal heart sound present and S2 normal heart sound present GI: Inspection: Yes normal to inspection Palpation (GI): Soft to palpation, nontender and No hepatosplenomegaly present Auscultation: normal bowel sounds : General: Yes no CVA tenderness Back/Spine/Pelvis: Back: no CVA tenderness Skin: Other: skin tears to both elbows Neuro: General: oriented to person Cranial nerves: Yes CN's II-XII intact bilaterally Motor exam (neuro): 5/5 motor strength present throughout Sensory Exam: No Sensory deficit (Neuro) Extrem: General: Yes normal to inspection Psych: Appearance: grossly normal Course Reevaluation(s) Reevaluation #1: INR down to 2.9, no head bleed, 2 nondisplaced rib fractures will dc on tylenol Time: 15:13 Medical Decision Making Differential Diagnosis Differential Diagnoses: The differential diagnosis associated with the presentation includes (cerebral bleed, head contusion, skin tears) Admission/Observation Consideration of admission/observation: Escalation of care including admission/observation considered (elderly thin frail male with head trauma, admission was considered) Lab Data MDM Lab Attestation statement: I reviewed the patient's lab results. 09/20/22 11:45 09/20/22 11:45 Labs: Lab Results 09/20/22 09/20/22 09/20/22 Range/Units 11:45 11:45 11:45 WBC 6.4 (4.8-10.8) X10*3/uL RBC 3.59 L (4.60-5.80) X10*6/uL Hgb 11.9 L (14.0-18.0) g/dl Hct 36.1 L (42.0-52.0) % MCV 100.6 H (80.0-98.0) fL MCH 33.1 H (27.0-33.0) pg MCHC 33.0 (31.0-36.0) g/dl RDW 15.0 (11.0-16.0) % Plt Count 174 (160-400) X10*3/uL MPV 10.0 (9.4-12.4) fL Immature Gran % (Auto) 0.5 H (0.0-0.4) % Neut % (Auto) 73.1 H (45-73) % Lymph % (Auto) 16.6 L (20-40) % [place] % (Auto) 8.5 (2-11) % Eos % (Auto) 0.5 (0-4) % Baso % (Auto) 0.8 (0-2) % Lymph # (Auto) 1.1 L (1.2-4.9) X10*3/uL [place] # (Auto) 0.5 (0.1-1.2) X10*3/uL Eos # (Auto) 0.0 (0.0-0.4) X10*3/uL Baso # (Auto) 0.1 (0.0-0.2) X10*3/uL Abs Immat Gran (auto) 0.03 (0.00-0.03) X10*3/uL Absolute Neuts (auto) 4.7 (2.0-8.3) x10*3/uL Absolute Nucleated RBC 0.000 (0.0-0.012) X10*3/uL Nucleated RBC % (auto) 0.0 (0.0-0.2) /100WBC PT (10.0-13.1) SEC INR (0.9-1.1) Sodium 142 (135-145) mmol/L Potassium 4.1 (3.3-5.1) mmol/L Chloride 105 (96-108) mmol/L Carbon Dioxide 30 H (22-29) mmol/L Anion Gap 11 L (12-20) BUN 18 H (9-16) mg/dL Creatinine 1.13 (0.5-1.4) mg/dL Estim Creat Clear Calc 37.6 Estimated GFR > 60 Random Glucose 140 H (60-115) mg/dL Calcium 8.4 (8.4-10.2) mg/dL Total Bilirubin 0.8 (0.0-1.0) mg/dL AST 24 (5-37) U/L ALT 20 (0-40) U/L Alkaline Phosphatase 116 (39-117) U/L Troponin I High Sens 25.5 (<3.5-35.0) ng/L Total Protein 6.0 L (6.5-8.0) g/dL Albumin 3.2 L (3.5-5.0) g/dL 09/20/22 Range/Units 14:29 WBC (4.8-10.8) X10*3/uL RBC (4.60-5.80) X10*6/uL Hgb (14.0-18.0) g/dl Hct (42.0-52.0) % MCV (80.0-98.0) fL MCH (27.0-33.0) pg MCHC (31.0-36.0) g/dl RDW (11.0-16.0) % Plt Count (160-400) X10*3/uL MPV (9.4-12.4) fL Immature Gran % (Auto) (0.0-0.4) % Neut % (Auto) (45-73) % Lymph % (Auto) (20-40) % [place] % (Auto) (2-11) % Eos % (Auto) (0-4) % Baso % (Auto) (0-2) % Lymph # (Auto) (1.2-4.9) X10*3/uL [place] # (Auto) (0.1-1.2) X10*3/uL Eos # (Auto) (0.0-0.4) X10*3/uL Baso # (Auto) (0.0-0.2) X10*3/uL Abs Immat Gran (auto) (0.00-0.03) X10*3/uL Absolute Neuts (auto) (2.0-8.3) x10*3/uL Absolute Nucleated RBC (0.0-0.012) X10*3/uL Nucleated RBC % (auto) (0.0-0.2) /100WBC PT 34.9 H (10.0-13.1) SEC INR 2.9 H D (0.9-1.1) Sodium (135-145) mmol/L Potassium (3.3-5.1) mmol/L Chloride (96-108) mmol/L Carbon Dioxide (22-29) mmol/L Anion Gap (12-20) BUN (9-16) mg/dL Creatinine (0.5-1.4) mg/dL Estim Creat Clear Calc Estimated GFR Random Glucose (60-115) mg/dL Calcium (8.4-10.2) mg/dL Total Bilirubin (0.0-1.0) mg/dL AST (5-37) U/L ALT (0-40) U/L Alkaline Phosphatase (39-117) U/L Troponin I High Sens (<3.5-35.0) ng/L Total Protein (6.5-8.0) g/dL Albumin (3.5-5.0) g/dL Independent Interpretation I performed an independent interpretation of an: Plain X-Ray (right rib fractures) and CT Scan (head: atrophy, no bleed) Independent Historian Clinical information obtained from an independent historian. History obtained from or confirmed by: Spouse Discharge Plan Discharge Clinical Impression: Acute head trauma, Closed rib fracture Patient Disposition: Home, Self-Care Instructions: Head Injury (ED), Rib Fracture (ED) Additional Instructions: tylenol every 6 hours for pain Prescriptions: No Action ipratropium bromide 0.03 % spray,non-aerosol intranasal memantine 5 mg tablet 5 mg PO BID carbamazepine 200 mg tablet 200 mg PO TID vitamin B 12 PO Label Comments: 1 tab daily warfarin 2 mg tablet 2 mg PO Protocol: Dose Management Condition: Tuesday (Week One) Dose/Route: 10 mg Instruction: 2 x 5 mg tablets Condition: Tuesday Dose/Route: 0 mg Instruction: 0 tablets Condition: Tuesday Dose/Route: 10 mg Instruction: 2 x 5 mg tablets Condition: Tuesday Dose/Route: 10 mg Instruction: 2 x 5 mg tablets Condition: Dose/Route: 10 mg Instruction: 2 x 5 mg tablets Condition: Tuesday Dose/Route: 10 mg Instruction: 2 x 5 mg tablets Condition: Tuesday Dose/Route: 10 mg Instruction: 2 x 5 mg tablets Condition: Tuesday (Week Two) Dose/Route: 10 mg Instruction: 2 x 5 mg tablets Condition: Tuesday Dose/Route: 10 mg Instruction: 2 x 5 mg tablets Condition: Tuesday Dose/Route: 10 mg Instruction: 2 x 5 mg tablets Condition: Tuesday Dose/Route: 10 mg Instruction: 2 x 5 mg tablets Condition: Dose/Route: 10 mg Instruction: 2 x 5 mg tablets Condition: Tuesday Dose/Route: 10 mg Instruction: 2 x 5 mg tablets Condition: Tuesday Dose/Route: 10 mg Instruction: 2 x 5 mg tablets Protocol Text: Adjustment Start Date: Tuesday09/13/22 INR Value: 4.3 INR Date: 09/13/22 Recheck Date: 09/20/22 donepezil 10 mg tablet 10 mg PO DAILY sertraline 50 mg tablet 50 mg PO DAILY losartan 25 mg tablet 25 mg PO DAILY aspirin 81 mg tablet,delayed release (DR/EC) 81 mg PO DAILY iron 60mg PO Label Comments: 60mg po daily metoprolol succinate 25 mg tablet extended release 24 hr 50 mg PO DAILY furosemide 20 mg tablet 20 mg PO DAILY warfarin 5 mg tablet 5 mg PO DAILY Protocol: Dose Management Condition: Tuesday (Week One) Dose/Route: 10 mg Instruction: 2 x 5 mg tablets Condition: Tuesday Dose/Route: 0 mg Instruction: 0 tablets Condition: Tuesday Dose/Route: 10 mg Instruction: 2 x 5 mg tablets Condition: Tuesday Dose/Route: 10 mg Instruction: 2 x 5 mg tablets Condition: Dose/Route: 10 mg Instruction: 2 x 5 mg tablets Condition: Tuesday Dose/Route: 10 mg Instruction: 2 x 5 mg tablets Condition: Tuesday Dose/Route: 10 mg Instruction: 2 x 5 mg tablets Condition: Tuesday ( Two) Dose/Route: 10 mg Instruction: 2 x 5 mg tablets Condition: Tuesday Dose/Route: 10 mg Instruction: 2 x 5 mg tablets Condition: Tuesday Dose/Route: 10 mg Instruction: 2 x 5 mg tablets Condition: Tuesday Dose/Route: 10 mg Instruction: 2 x 5 mg tablets Condition: Dose/Route: 10 mg Instruction: 2 x 5 mg tablets Condition: Tuesday Dose/Route: 10 mg Instruction: 2 x 5 mg tablets Condition: Tuesday Dose/Route: 10 mg Instruction: 2 x 5 mg tablets Protocol Text: Adjustment Start Date: Tuesday09/13/22 INR Value: 4.3 INR Date: 09/13/22 Recheck Date: 09/20/22 amoxicillin 500 mg tablet 1,000 mg PO BID Referrals: Alex Thacker MD [Primary Care Provider] - 5 days
[2022-09-20 11:48] LABS: MANUAL DIFF FLAG NO
[2022-09-20 11:52] LABS: Basophils Absolute Auto 0.1 X10*3/uL (0.0-0.2); Basophils Percent Auto 0.8 % (0-2); Eosinophils Percent Auto 0.5 % (0-4); Hematocrit 36.1 % (42.0-52.0); Hemoglobin 11.9 g/dl (14.0-18.0); Imm Gran Abs Auto 0.03 X10*3/uL (0.00-0.03); Imm Gran Pct Auto 0.5 % (0.0-0.4); Lymphocytes Absolute Auto 1.1 X10*3/uL (1.2-4.9); Lymphocytes Percent Auto 16.6 % (20-40); Mean Corpuscular Hemoglobin 33.1 pg (27.0-33.0); Mean Corpuscular Volume 100.6 fL (80.0-98.0); Monocytes Absolute Auto 0.5 X10*3/uL (0.1-1.2); Monocytes Percent Auto 8.5 % (2-11); Neutrophils Absolute Auto 4.7 x10*3/uL (2.0-8.3); Neutrophils Percent Auto 73.1 % (45-73); Platelet Count 174 X10*3/uL (160-400); Red Blood Count 3.59 X10*6/uL (4.60-5.80); White Blood Count 6.4 X10*3/uL (4.8-10.8)
[2022-09-20 12:10] LABS: Alanine Aminotransferase 20 U/L (0-40); Albumin Level 3.2 g/dL (3.5-5.0); Alkaline Phosphatase 116 U/L (39-117); Anion Gap 11 (12-20); Aspartate Amino Transferase 24 U/L (5-37); Bilirubin Total 0.8 mg/dL (0.0-1.0); Blood Urea Nitrogen 18 mg/dL (9-16); Calcium 8.4 mg/dL (8.4-10.2); Carbon Dioxide 30 mmol/L (22-29); Chloride 105 mmol/L (96-108); Creatinine Clr Calc Pharmacy 37.6; Estimated Glomerular Filt Rate > 60; Glucose Random 140 mg/dL (60-115); Potassium 4.1 mmol/L (3.3-5.1); Sodium 142 mmol/L (135-145)
[2022-09-20 12:11] LABS: Troponin-I High Sensitivity 25.5 ng/L (<3.5-35.0)
[2022-09-20 14:59] LABS: INTERNATIONAL NORM RATIO 2.9 (0.9-1.1); Prothrombin Time 34.9 SEC (10.0-13.1)
[2022-09-20 15:27] VITALS: BP 142/84; PULSE 90; RESP 16; O2SAT 95
--- NOTE | 2022-09-20 15:30 | PC.NURSE ---
Neuros are intact Dressings being changed by tech at this time, pt to be discharged with , f/u with pcp.
== END 2022-09-20 15:49 | disposition home or self-care (01) ==
PROVIDERS: Emergency Provider Emergency Medicine; PCP Internal Medicine
DX: S09.90XA Unspecified injury of head, initial encounter (principal); S22.31XA Fracture of one rib, right side, initial encounter for closed fracture; W06.XXXA Fall from bed, initial encounter; I48.91 Unspecified atrial fibrillation; R63.6 Underweight; Z68.20 Body mass index [BMI] 20.0-20.9, adult; J61 Pneumoconiosis due to asbestos and other mineral fibers; Y93.84 Activity, sleeping; Y92.013 Bedroom of single-family (private) house as the place of occurrence of the external cause; Y99.9 Unspecified external cause status; Z99.81 Dependence on supplemental oxygen; Z95.2 Presence of prosthetic heart valve; Z79.01 Long term (current) use of anticoagulants; Z79.899 Other long term (current) drug therapy
CPT/HCPCS: 36415; 70450; 71101; 80053; 84484; 85025; 85610; 93005; 99282; 99283; 99284

== ENCOUNTER 2022-09-26 12:52 | Emergency (ER) | payer MEDICARE, SELFPAY ==
--- NOTE | ~2022-09-26 | CT_ITS ---
EXAMINATION: CT CHEST WITH IV CONTRAST CT ABDOMEN AND PELVIS WITH IV CONTRAST CLINICAL INFORMATION: 86-year-old male with history of fall, injury. Strike. COMPARISON: Chest CT from 07/21/2022. TECHNIQUE: Noncontrast multidetector CT imaging examination of the chest, abdomen and pelvis was performed. Coronal and sagittal reformatted images were generated at the technologist's workstation and submitted for review. This CT examination was performed using dose optimization techniques as appropriate, variously including the following: *Automated exposure control *Adjustment of mA and/or kV according to patient size (this includes techniques or standardized protocols for targeted exams where dose is matched to indication/reason for exam; i.e. extremities or head) *Use of iterative reconstruction technique DLP: 194.05 mGy-cm for the chest CT and 412.91 mGy-cm for the abdomen/pelvis CT FINDINGS: CHEST - LUNGS AND PLEURA: Trachea and central airways are widely patent and normal in caliber. Chronic mild pleural thickening and pleural calcifications of each hemithorax without pleural-based mass or pleural effusion. Correlate for history of remote asbestos exposure. No pneumothorax. A small area of groundglass opacity in the perihilar region of the left upper lobe is present. There are chronic linear and curvilinear opacities of scarring or atelectasis in mid to lower lung zones. MEDIASTINUM/LOWER NECK: Chronic cardiomegaly. Mitral valve annulus is calcified. Aortic valve is replaced. There is three-vessel coronary artery atherosclerotic calcification. No pericardial effusion. Pulmonary artery trunk is chronically mildly enlarged and measures 3 cm transverse diameter. Thoracic aorta atherosclerosis. No evidence of intramural hematoma or mediastinal hemorrhage. Aortic root is 4.2 cm diameter. At the level of the right pulmonary artery, the ascending thoracic aorta is normal in caliber (3.5 cm AP diameter). The aortic arch is chronically mildly dilated with proximal and distal arch measuring approximately 3.5 cm. The esophagus and thyroid gland are unremarkable. No pneumomediastinum. LYMPHATICS: No axillary or internal mammary lymphadenopathy. No pathologic sized hilar lymph nodes. Mild lymphadenopathy in the mediastinum is not significantly changed compared to 07/21/2022. CHEST WALL/BONES: Chronic hyperkyphosis and dextroscoliosis of the degenerated thoracic spine. A sclerotic impaction fracture line within the T4 vertebral body is a new finding since 07/21/2022 (for example coronal reformatted images 58-60 of 79). There is minimal anterior wedging of this vertebral body. There is chronic mild widening of the anterior disc space and minimal concavity of endplates at T1-T2. Minimally displaced acute fractures of right anterolateral seventh rib and right lateral eighth rib. No chest wall hematoma. Sternotomy is healed. ABDOMEN AND PELVIS - HEPATOBILIARY: No evidence of liver laceration on these noncontrast images. No perihepatic fluid collection. 1 cm simple cyst in the left lobe of the liver. Gallbladder is unremarkable. No dilated bile ducts. PANCREAS: No acute findings within the atrophied pancreas. No edema, mass or pancreatic ductal dilatation. SPLEEN: Normal. ADRENAL GLANDS: Normal. KIDNEYS AND URETERS: Kidneys are normal in size and attenuation. No nephrolithiasis, hydronephrosis or perinephric fluid collection. BOWEL AND PERITONEUM: Stomach is underdistended. No dilated bowel loops. No focal bowel wall thickening. No abdominal free fluid or free air. Diverticula of the colon without evidence of diverticulitis. ABDOMINAL WALL: Small umbilical hernia contains a very short segment of small bowel. VESSELS: Atherosclerosis of the abdominal aorta and iliac arteries. No abdominal aorta aneurysm. No retroperitoneal hematoma. LYMPH NODES: No pathologic sized lymph nodes in the abdomen or pelvis. No inguinal lymphadenopathy. BLADDER AND PELVIC VISCERA: Large prostate gland measures approximately 5 cm transverse, 3.5 cm AP and 5.3 cm craniocaudal. The urinary bladder is moderately distended and has left lateral wall and posterior wall diverticula. No bladder stones. No pelvic free fluid. MUSCULOSKELETAL: Chondrocalcinosis of the degenerated spine. Multilevel facet arthropathy, degenerative disc disease and levoscoliosis of lumbar spine with apex of curvature at L3. There are Schmorl's nodes at L1 superior and inferior endplates. No suspicious bone lesions. There is mild degenerative anterolisthesis and left lateral listhesis at L4-L5. Pelvic bones and proximal femurs are intact. Mild osteoarthrosis of the hips. CT/CT abdomen pelvis wo IV con IMPRESSION: * There are acute, minimally displaced fractures of right seventh and eighth ribs. No pleural effusion or pneumothorax. * A small area of groundglass opacity in the perihilar region of the left upper lobe could represent mild pneumonitis. * Multiple bilateral calcified pleural plaques could be sequela of remote asbestos exposure. Chronic linear and curvilinear opacities of scarring are present in mid and lower lung zones. * Cardiomegaly with atherosclerotic disease of coronary arteries, status post aortic valve replacement surgery. * Mild impaction fracture of T4 vertebral body is new compared to 07/21/2020. * Small umbilical hernia contains a very short segment of small bowel. * Colonic diverticulosis without diverticulitis. * Prostatomegaly and likely chronic partial bladder outlet obstruction with presence of bladder diverticula.
--- NOTE | ~2022-09-26 | CT_ITS ---
EXAMINATION: CT HEAD WITHOUT CONTRAST CT CERVICAL SPINE WITHOUT CONTRAST CLINICAL INFORMATION: Fall, trauma. COMPARISON: CT head 09/20/2022. CT chest 07/21/2022. TECHNIQUE: Contiguous axial imaging was performed from the skull base to vertex without intravenous administration of contrast. Contiguous axial imaging was performed from the upper chest through the skull base without intravenous administration of contrast. Coronal and sagittal reformats were obtained at the acquisition workstation. This CT examination was performed using dose optimization techniques as appropriate, variously including the following: *Automated exposure control *Adjustment of mA and/or kV according to patient size (this includes techniques or standardized protocols for targeted exams where dose is matched to indication/reason for exam; i.e. extremities or head) *Use of iterative reconstruction technique DLP: 194 mGy-cm FINDINGS: Head: There is no evidence of acute intracranial hemorrhage or edematous territorial infarction. Scattered hypoattenuation in the periventricular and deep white matter are consistent with moderate microangiopathy. Lacunar infarctions in the basal ganglia in combination with prominent perivascular spaces are unchanged compared to 09/20/2022. Lawler-white matter differentiation is preserved. Proportional prominence of the ventricles and sulcal spaces. No evidence for obstructive hydrocephalus. No abnormal mass effect or midline shift. No extra-axial fluid collections. Left frontal scalp and right frontoparietal scalp hematomas. No calvarial fracture. 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 The mastoid air cells and paranasal sinuses are clear. Cervical Spine: The atlantooccipital and atlantoaxial articulations remain well aligned. Grade 1 anterolisthesis of C4 on C5 and C7 on T1, likely degenerative in nature. Otherwise, there is anatomic alignment of the vertebral bodies and posterior elements. No evidence of acute fracture or traumatic subluxation. Moderate to severe multilevel cervical spondylosis leading to variously degrees of neural foraminal encroachment and central canal narrowing. There is no prevertebral soft tissue swelling. The thyroid gland and remaining cervical soft tissues are normal in appearance. A 0.6 cm groundglass nodule in the right apex (25:262) is new compared to CT chest from 07/31/2022. A 0.6 cm solid nodule in the right apex (26:277) is also new. A few other bilateral pulmonary nodules, including a 0.8 cm nodule in the left apex (25:241) are stable compared to 07/21/2022. There is biapical subpleural thickening/scarring with associated subpleural calcifications. CT/CT cervical spine wo IV con IMPRESSION: 1. Left frontal scalp and right frontoparietal scalp hematomas. No acute intracranial abnormalities. 2. No acute cervical spinal fractures or malalignment. 3. A 0.6 cm groundglass nodule in the right apex and a 0.6 cm solid nodule in the left apex are compared to CT chest from 07/21/2022. Assuming patient has no history of malignancy, recommend follow-up per Fleischner Society recommendations. According to the UPDATED 2017 Fleischner Society recommendations, the advised followup imaging for multiple nodules, the largest measuring 6 mm or greater, is: LOW RISK PATIENT: CT at 3-6 months, then consider CT at 18-24 months. HIGH RISK PATIENT: CT at 3-6 months, then at 18-24 months.
--- NOTE | 2022-09-26 12:57 | ED_ITS ---
HPI - General Adult General Chief complaint: Fall Stated complaint: HEAD LAC S/P TRIP/FALL,ON COUMADIN,+CCOLLAR Time Seen by Provider: 09/26/22 12:54 Source: patient, family (patient's and daughter) and EMS Mode of arrival: EMS Limitations: no limitations History of Present Illness HPI narrative: Patient is an 86 year old assigned male at with a history of an artificial valve, asbestosis, and multiple falls presenting to the emergency department today after a fall. Patient states that he was walking out of the bathroom when he tripped and fell, hitting his head. Patient states that he is on Coumadin. Patient states that he did not have any loss of consciousness. Patient's states that he was here a few days ago for a fall and told then he had 2 broken ribs. Patient's states that the patient is supposed to be on 2LPM of oxygen at all times but he has been refusing to wear it at home. Patient's also states that the patient's memory is getting worse and his aggression is increasing. Patient denies any dizziness, lightheadedness, abdominal pain, nausea, vomiting, fever, chills, blurry vision, double vision, loss of vision, chest pain, difficulty breathing, shortness of breath, back pain, night sweats, pain with urination, increased urinary frequency, increased urinary urgency, blood in his urine or stool, syncope or a near syncopal episode, bowel incontinence, bladder incontinence, bowel retention, bladder retention, or any other complaints at this time. Severity: mild Severity scale (1-10): 2 Relieving factors: none Associated symptoms: denies other symptoms Treatments prior to arrival: none Related Data Home Medications Medication Instructions Recorded Confirmed ipratropium bromide 21 mcg (0.03 intranasal 07/30/20 09/13/22 %) nasal spray memantine 5 mg tablet 5 mg PO BID 07/30/20 09/13/22 carbamazepine 200 mg tablet 200 mg PO TID 08/27/20 09/13/22 warfarin 2 mg tablet 2 mg PO 10/08/20 09/13/22 donepezil 10 mg tablet 10 mg PO DAILY 12/03/20 09/13/22 sertraline 50 mg tablet 50 mg PO DAILY 12/03/20 09/13/22 vitamin B 12 PO 12/29/20 09/13/22 losartan 25 mg tablet 25 mg PO DAILY 02/17/22 09/13/22 aspirin 81 mg tablet,delayed 81 mg PO DAILY 02/25/22 09/13/22 release iron 60mg PO 02/25/22 09/13/22 furosemide 20 mg tablet 20 mg PO DAILY 03/02/22 09/13/22 metoprolol succinate 25 mg 50 mg PO DAILY 03/02/22 09/13/22 tablet,extended release 24 hr warfarin 5 mg tablet 5 mg PO DAILY 08/24/22 09/13/22 amoxicillin 500 mg tablet 1,000 mg PO BID 09/10/22 09/13/22 Allergies Allergy/AdvReac Type Severity Reaction Status Date / Time No Known Allergies Allergy Verified 09/13/22 09:56 Review of Systems Constitutional: Constitutional: Reports no additional constitutional complaints, Denies chills, Denies fever(s) and Denies night sweats Eyes: Eyes: Reports no additional eye complaints, Denies blurry vision, Denies change in vision, Denies diplopia, Denies eye discharge, Denies loss of vision and Denies eye pain ENT: Denies dizziness Cardiovascular: Cardiovascular: Reports no additional cardiovascular complaints, Denies chest pain, Denies lightheadedness, Denies Loss of Consciousness and Denies dyspnea Respiratory: Respiratory: Reports no additional respiratory complaints and Denies dyspnea Gastrointestinal: Gastrointestinal: Reports no additional gastrointestinal complaints, Denies abdominal pain, Denies melena, Denies hematochezia, Denies change in bowel habits and Denies change in stool character Genitourinary: Genitourinary: Reports no additional male genitourinary complaints, Denies hematuria, Denies oliguria, Denies difficulty urinating, Denies dysuria, Denies urinary frequency, Denies urinary hesitancy, Denies urinary incontinence and Denies urinary urgency Musculoskeletal: Musculoskeletal: Reports no additional musculoskeletal complaints, Denies numbness and Denies tingling Neurologic: Denies dizziness, Denies loss of vision, Denies numbness and Denies tingling Psychiatric: Psychiatric: Reports no additional psychiatric complaints Endocrine: Endocrine: Reports no additional endocrine complaints Hematologic/Lymphatic: Hematologic/Lymphatic: Reports no additional hematologic/lymphatic complaints Allergic/Immunologic: Allergic/Immunologic: Reports no additional allergic/immunologic complaints PMFSH Past Medical History Attestation statement: The following information was validated with the patient. (all information validated with the patient's and daughter) Source: old records reviewed, obtained from family ( and daughter) and nursing notes reviewed Social History Social History Advance Directives: No Advance Directives Information Provided: No Physical Exam ED Vital Signs: Vital Signs - 24 hr 09/26/22 13:04 Temperature 97.6 F Pulse Rate 88 Respiratory Rate 16 Blood Pressure 149/92 H Pulse Oximetry 97 Oxygen Delivery Method Room Air BMI result Body Mass Index 22.9 Const General: cooperative, no acute distress, alert and awake Nutritional Appearance: well nourished Orientation/consciousness: patient oriented x3 Limitations: no limitations HENMT Other: small abrasion to the left parietal scalp, no active bleeding or gaping Ears: hearing grossly normal bilaterally and external ears normal General nose exam: Normal external nose present, no nasal discharge noted and no epistaxis Face and sinus: Yes normal facial exam, No abrasion and No laceration Mouth: Normal oral and palatal mucosa present, no drooling and no muffled voice Eyes General: appearance normal, both eyes and all related structures Periorbital: periorbital findings normal Eyelids: Yes eyelids normal Conjunctivae: conjunctivae normal Pupils: Equal, round and reactive pupils present EOM: EOMs intact bilaterally Neck Neck: Yes normal visual inspection, Yes full ROM and Yes no lymphadenopathy Chest Chest palpation & inspection: normal inspection of the chest Resp Effort & Inspection: normal respiratory effort and able to speak in complete sentences Auscultation: clear to auscultation bilaterally Cardio Rate: regular rate Rhythm: regular rhythm GI Inspection: Yes normal to inspection Palpation (GI): Soft to palpation, not firm, nontender, no guarding and not rigid Neuro General: patient oriented x3 and moves all extremities Cranial nerves: Yes Equal, round and reactive pupils present Cognition (Neuro): normal cognition Motor exam (neuro): 5/5 motor strength present throughout Sensory Exam: Normal double simultaneous stimulation for sensation Coordination: [id number] test normal Extrem General: Yes normal to inspection, Yes full ROM and Yes capillary refill normal Psych Appearance: grossly normal Mental Status: mental status grossly normal Affect: normal affect Attitude: cooperative Thought process: Normal thought process present Thought content: Normal thought content present Insight: Good insight present (Psych) Medical Decision Making Medical Decision Making MDM Narrative: Patient is an 86 year old assigned male at with a history of valve replacement and asbestosis presenting to the emergency department today after a fall. Patient's physical exam showed a small abrasion to the left parietal scalp that was not actively bleeding or gaping. Patient's blood work showed a slightly elevated INR of 3.6. Patient's head and C-spine CT showed no acute process. Patient's chest and abdominal / pelvis CT showed a new right 8th rib fracture. I explained my physical exam findings as well as all test results to the patient, the patient's , and the patient's daughter. I answered all questions asked by the patient, the patient's , and the patient's daughter. Patient's and daughter expressed concern that the patient is not safe to go home considering this is his second fall in less than 1 week and he is refusing to wear his oxygen at home. Patient placed under physician observation. Patient to be evaluated by PT and CM. Differential Diagnosis Differential Diagnoses: The differential diagnosis associated with the presentation includes fall, rib fx, unsafe at home Lab Data MDM Lab Attestation statement: I reviewed the patient's lab results. 09/26/22 13:45 09/26/22 13:45 Labs: Lab Results 09/26/22 09/26/22 09/26/22 Range/Units 13:45 13:45 13:45 WBC 5.1 (4.8-10.8) X10*3/uL RBC 3.52 L (4.60-5.80) X10*6/uL Hgb 11.5 L (14.0-18.0) g/dl Hct 36.0 L (42.0-52.0) % MCV 102.3 H (80.0-98.0) fL MCH 32.7 (27.0-33.0) pg MCHC 31.9 (31.0-36.0) g/dl RDW 15.2 (11.0-16.0) % Plt Count 180 (160-400) X10*3/uL MPV 9.6 (9.4-12.4) fL Immature Gran % (Auto) 0.4 (0.0-0.4) % Neut % (Auto) 72.0 (45-73) % Lymph % (Auto) 17.0 L (20-40) % [place] % (Auto) 9.0 (2-11) % Eos % (Auto) 0.6 (0-4) % Baso % (Auto) 1.0 (0-2) % Lymph # (Auto) 0.9 L (1.2-4.9) X10*3/uL [place] # (Auto) 0.5 (0.1-1.2) X10*3/uL Eos # (Auto) 0.0 (0.0-0.4) X10*3/uL Baso # (Auto) 0.1 (0.0-0.2) X10*3/uL Abs Immat Gran (auto) 0.02 (0.00-0.03) X10*3/uL Absolute Neuts (auto) 3.7 (2.0-8.3) x10*3/uL Absolute Nucleated RBC 0.000 (0.0-0.012) X10*3/uL Nucleated RBC % (auto) 0.0 (0.0-0.2) /100WBC PT 43.0 H (10.0-13.1) SEC INR 3.6 H (0.9-1.1) APTT 46.2 H (26.0-36.4) SEC Sodium 143 (135-145) mmol/L Potassium 4.4 (3.3-5.1) mmol/L Chloride 106 (96-108) mmol/L Carbon Dioxide 27 (22-29) mmol/L Anion Gap 14 (12-20) BUN 24 H (9-16) mg/dL Creatinine 1.07 (0.5-1.4) mg/dL Estim Creat Clear Calc 41.4 Estimated GFR > 60 Random Glucose 108 (60-115) mg/dL Calcium 8.6 (8.4-10.2) mg/dL Total Bilirubin 0.8 (0.0-1.0) mg/dL AST 24 (5-37) U/L ALT 19 (0-40) U/L Alkaline Phosphatase 119 H (39-117) U/L Total Protein 6.4 L (6.5-8.0) g/dL Albumin 3.4 L (3.5-5.0) g/dL Independent Interpretation Interpretation: My interpretation is in agreement with the radiologist's impression of these imaging studies. EXAMINATION: CT HEAD WITHOUT CONTRAST CT CERVICAL SPINE WITHOUT CONTRAST CLINICAL INFORMATION: Fall, trauma.? COMPARISON: CT head 09/20/2022. CT chest 07/21/2022. TECHNIQUE: Contiguous axial imaging was performed from the skull base to vertex without intravenous administration of contrast. Contiguous axial imaging was performed from the upper chest through the skull base without intravenous administration of contrast. Coronal and sagittal reformats were obtained at the acquisition workstation. This CT examination was performed using dose optimization techniques as appropriate, variously including the following: *Automated exposure control *Adjustment of mA and/or kV according to patient size (this includes techniques or standardized protocols for targeted exams where dose is matched to indication/reason for exam; i.e. extremities or head) *Use of iterative reconstruction technique DLP: 194 mGy-cm FINDINGS: Head: There is no evidence of acute intracranial hemorrhage or edematous territorial infarction. Scattered hypoattenuation in the periventricular and deep white matter are consistent with moderate microangiopathy. Lacunar infarctions in the basal ganglia in combination with prominent perivascular spaces are unchanged compared to 09/20/2022. Lawler-white matter differentiation is preserved. Proportional prominence of the ventricles and sulcal spaces. No evidence for obstructive hydrocephalus. No abnormal mass effect or midline shift. No extra-axial fluid collections. Left frontal scalp and right frontoparietal scalp hematomas. No calvarial fracture. 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 The mastoid air cells and paranasal sinuses are clear. Cervical Spine: The atlantooccipital and atlantoaxial articulations remain well aligned. Grade 1 anterolisthesis of C4 on C5 and C7 on T1, likely degenerative in nature. Otherwise, there is anatomic alignment of the vertebral bodies and posterior elements. No evidence of acute fracture or traumatic subluxation. Moderate to severe multilevel cervical spondylosis leading to variously degrees of neural foraminal encroachment and central canal narrowing. There is no prevertebral soft tissue swelling. The thyroid gland and remaining cervical soft tissues are normal in appearance. A 0.6 cm groundglass nodule in the right apex (25:262) is new compared to CT chest from 07/31/2022. A 0.6 cm solid nodule in the right apex (26:277) is also new. A few other bilateral pulmonary nodules, including a 0.8 cm nodule in the left apex (25:241) are stable compared to 07/21/2022. There is biapical subpleural thickening/scarring with associated subpleural calcifications. CT/CT head/brain wo IV con IMPRESSION: 1.? Left frontal scalp and right frontoparietal scalp hematomas. No acute intracranial abnormalities. 2.? No acute cervical spinal fractures or malalignment. 3.? A 0.6 cm groundglass nodule in the right apex and a 0.6 cm solid nodule in the left apex are compared to CT chest from 07/21/2022. Assuming patient has no history of malignancy, recommend follow-up per Fleischner Society recommendations. According to the UPDATED 2017 Fleischner Society recommendations, the advised followup imaging for multiple nodules, the largest measuring 6 mm or greater, is: LOW RISK PATIENT: CT at 3-6 months, then consider CT at 18-24 months. HIGH RISK PATIENT: CT at 3-6 months, then at 18-24 months. Dictated By: Dotty Garnica Signed By: Electronically signed by Jordana 09/26/22 1435 -------- EXAMINATION: CT CHEST WITH IV CONTRAST CT ABDOMEN AND PELVIS WITH IV CONTRAST CLINICAL INFORMATION: 86-year-old male with history of fall, injury. Strike. COMPARISON: Chest CT from 07/21/2022. TECHNIQUE: Noncontrast multidetector CT imaging examination of the chest, abdomen and pelvis was performed. Coronal and sagittal reformatted images were generated at the technologist's workstation and submitted for review. This CT examination was performed using dose optimization techniques as appropriate, variously including the following: *Automated exposure control *Adjustment of mA and/or kV according to patient size (this includes techniques or standardized protocols for targeted exams where dose is matched to indication/reason for exam; i.e. extremities or head) *Use of iterative reconstruction technique DLP: 194.05 mGy-cm for the chest CT and 412.91 mGy-cm for the abdomen/pelvis CT FINDINGS: CHEST - LUNGS AND PLEURA:? Trachea and central airways are widely patent and normal in caliber. Chronic mild pleural thickening and pleural calcifications of each hemithorax without pleural-based mass or pleural effusion. Correlate for history of remote asbestos exposure. No pneumothorax. A small area of groundglass opacity in the perihilar region of the left upper lobe is present. There are chronic linear and curvilinear opacities of scarring or atelectasis in mid to lower lung zones. MEDIASTINUM/LOWER NECK: Chronic cardiomegaly. Mitral valve annulus is calcified. Aortic valve is replaced. There is three-vessel coronary artery atherosclerotic calcification. No pericardial effusion. Pulmonary artery trunk is chronically mildly enlarged and measures 3 cm transverse diameter. Thoracic aorta atherosclerosis. No evidence of intramural hematoma or mediastinal hemorrhage. Aortic root is 4.2 cm diameter. At the level of the right pulmonary artery, the ascending thoracic aorta is normal in caliber (3.5 cm AP diameter). The aortic arch is chronically mildly dilated with proximal and distal arch measuring approximately 3.5 cm. The esophagus and thyroid gland are unremarkable. No pneumomediastinum. LYMPHATICS: No axillary or internal mammary lymphadenopathy. No pathologic sized hilar lymph nodes. Mild lymphadenopathy in the mediastinum is not significantly changed compared to 07/21/2022. CHEST WALL/BONES: Chronic hyperkyphosis and dextroscoliosis of the degenerated thoracic spine. A sclerotic impaction fracture line within the T4 vertebral body is a new finding since 07/21/2022 (for example coronal reformatted images 58-60 of 79). There is minimal anterior wedging of this vertebral body. There is chronic mild widening of the anterior disc space and minimal concavity of endplates at T1-T2. Minimally displaced acute fractures of right anterolateral seventh rib and right lateral eighth rib. No chest wall hematoma. Sternotomy is healed. ABDOMEN AND PELVIS - HEPATOBILIARY: No evidence of liver laceration on these noncontrast images. No perihepatic fluid collection. 1 cm simple cyst in the left lobe of the liver. Gallbladder is unremarkable. No dilated bile ducts. PANCREAS: No acute findings within the atrophied pancreas. No edema, mass or pancreatic ductal dilatation. SPLEEN: Normal. ADRENAL GLANDS: Normal. KIDNEYS AND URETERS: Kidneys are normal in size and attenuation. No nephrolithiasis, hydronephrosis or perinephric fluid collection. BOWEL AND PERITONEUM: Stomach is underdistended. No dilated bowel loops. No focal bowel wall thickening. No abdominal free fluid or free air. Diverticula of the colon without evidence of diverticulitis. ABDOMINAL WALL: Small umbilical hernia contains a very short segment of small bowel. VESSELS: Atherosclerosis of the abdominal aorta and iliac arteries. No abdominal aorta aneurysm. No retroperitoneal hematoma. LYMPH NODES: No pathologic sized lymph nodes in the abdomen or pelvis. No inguinal lymphadenopathy. BLADDER AND PELVIC VISCERA: Large prostate gland measures approximately 5 cm transverse, 3.5 cm AP and 5.3 cm craniocaudal. The urinary bladder is moderately distended and has left lateral wall and posterior wall diverticula. No bladder stones. No pelvic free fluid. MUSCULOSKELETAL: Chondrocalcinosis of the degenerated spine. Multilevel facet arthropathy, degenerative disc disease and levoscoliosis of lumbar spine with apex of curvature at L3. There are Schmorl's nodes at L1 superior and inferior endplates. No suspicious bone lesions. There is mild degenerative anterolisthesis and left lateral listhesis at L4-L5. Pelvic bones and proximal femurs are intact. Mild osteoarthrosis of the hips. CT/CT chest wo IV con IMPRESSION: *? There are acute, minimally displaced fractures of right seventh and eighth ribs. No pleural effusion or pneumothorax. *? A small area of groundglass opacity in the perihilar region of the left upper lobe could represent mild pneumonitis. *? Multiple bilateral calcified pleural plaques could be sequela of remote asbestos exposure. Chronic linear and curvilinear opacities of scarring are present in mid and lower lung zones. *? Cardiomegaly with atherosclerotic disease of coronary arteries, status post aortic valve replacement surgery. *? Mild impaction fracture of T4 vertebral body is new compared to 07/21/2020. *? Small umbilical hernia contains a very short segment of small bowel. *? Colonic diverticulosis without diverticulitis. *? Prostatomegaly and likely chronic partial bladder outlet obstruction with presence of bladder diverticula. Dictated By: Oliver Toscano MD Signed By: Electronically signed by Oliver Toscano MD 09/26/22 3445 Independent Historian Clinical information obtained from an independent historian. History obtained from or confirmed by: Spouse (), EMS and Other (daughter) Social Determinants Patient?s care significantly limited by Social Determinants of Health including: Other Social Determinant of Health (unsafe at home, frequent falls) Discharge Plan Discharge Clinical Impression: Falls frequently Patient Disposition: Still a Patient Prescriptions: No Action ipratropium bromide 0.03 % spray,non-aerosol intranasal memantine 5 mg tablet 5 mg PO BID carbamazepine 200 mg tablet 200 mg PO TID vitamin B 12 PO Label Comments: 1 tab daily warfarin 2 mg tablet 2 mg PO Protocol: Dose Management Condition: Tuesday (Week One) Dose/Route: 10 mg Instruction: 2 x 5 mg tablets Condition: Tuesday Dose/Route: 5 mg Instruction: 1 x 5 mg tablet Condition: Tuesday Dose/Route: 10 mg Instruction: 2 x 5 mg tablets Condition: Tuesday Dose/Route: 10 mg Instruction: 2 x 5 mg tablets Condition: Dose/Route: 10 mg Instruction: 2 x 5 mg tablets Condition: Tuesday Dose/Route: 10 mg Instruction: 2 x 5 mg tablets Condition: Tuesday Dose/Route: 10 mg Instruction: 2 x 5 mg tablets Condition: Tuesday (Week Two) Dose/Route: 10 mg Instruction: 2 x 5 mg tab lets Condition: Tuesday Dose/Route: 10 mg Instruction: 2 x 5 mg tablets Condition: Tuesday Dose/Route: 10 mg Instruction: 2 x 5 mg tablets Condition: Tuesday Dose/Route: 10 mg Instruction: 2 x 5 mg tablets Condition: Dose/Route: 10 mg Instruction: 2 x 5 mg tablets Condition: Tuesday Dose/Route: 10 mg Instruction: 2 x 5 mg tablets Condition: Tuesday Dose/Route: 10 mg Instruction: 2 x 5 mg tablets Protocol Text: Adjustment Start Date: Tuesday09/20/22 INR Value: 2.9 INR Date: 09/20/22 Recheck Date: 09/27/22 donepezil 10 mg tablet 10 mg PO DAILY sertraline 50 mg tablet 50 mg PO DAILY losartan 25 mg tablet 25 mg PO DAILY aspirin 81 mg tablet,delayed release (DR/EC) 81 mg PO DAILY iron 60mg PO Label Comments: 60mg po daily metoprolol succinate 25 mg tablet extended release 24 hr 50 mg PO DAILY furosemide 20 mg tablet 20 mg PO DAILY warfarin 5 mg tablet 5 mg PO DAILY Protocol: Dose Management Condition: Tuesday (Week One) Dose/Route: 10 mg Instruction: 2 x 5 mg tablets Condition: Tuesday Dose/Route: 5 mg Instruction: 1 x 5 mg tablet Condition: Tuesday Dose/Route: 10 mg Instruction: 2 x 5 mg tablets Condition: Tuesday Dose/Route: 10 mg Instruction: 2 x 5 mg tablets Condition: Dose/Route: 10 mg Instruction: 2 x 5 mg tablets Condition: Tuesday Dose/Route: 10 mg Instruction: 2 x 5 mg tablets Condition: Tuesday Dose/Route: 10 mg Instruction: 2 x 5 mg tablets Condition: Tuesday (Week Two) Dose/Route: 10 mg Instruction: 2 x 5 mg tablets Condition: Tuesday Dose/Route: 10 mg Instruction: 2 x 5 mg tablets Condition: Tuesday Dose/Route: 10 mg Instruction: 2 x 5 mg tablets Condition: Tuesday Dose/Route: 10 mg Instruction: 2 x 5 mg tablets Condition: Dose/Route: 10 mg Instruction: 2 x 5 mg tablets Condition: Tuesday Dose/Route: 10 mg Instruction: 2 x 5 mg tablets Condition: Tuesday Dose/Route: 10 mg Instruction: 2 x 5 mg tablets Protocol Text: Adjustment Start Date: Tuesday09/20/22 INR Value: 2.9 INR Date: 09/20/22 Recheck Date: 09/27/22 amoxicillin 500 mg tablet 1,000 mg PO BID
[2022-09-26 13:03] VITALS: BP 161/102; PULSE 90; O2SAT 95
[2022-09-26 13:04] VITALS: BP 149/92; PULSE 88; RESP 16; TEMP 36.4; O2SAT 97; BMI 22.9
[2022-09-26 13:50] LABS: MANUAL DIFF FLAG NO
[2022-09-26 13:52] LABS: Basophils Absolute Auto 0.1 X10*3/uL (0.0-0.2); Eosinophils Percent Auto 0.6 % (0-4); Hemoglobin 11.5 g/dl (14.0-18.0); Imm Gran Abs Auto 0.02 X10*3/uL (0.00-0.03); Imm Gran Pct Auto 0.4 % (0.0-0.4); Lymphocytes Absolute Auto 0.9 X10*3/uL (1.2-4.9); Mean Corpuscular HGB Conc 31.9 g/dl (31.0-36.0); Mean Corpuscular Hemoglobin 32.7 pg (27.0-33.0); Mean Corpuscular Volume 102.3 fL (80.0-98.0); Mean Platelet Volume 9.6 fL (9.4-12.4); Monocytes Absolute Auto 0.5 X10*3/uL (0.1-1.2); Neutrophils Absolute Auto 3.7 x10*3/uL (2.0-8.3); Platelet Count 180 X10*3/uL (160-400); Red Blood Count 3.52 X10*6/uL (4.60-5.80); Red Cell Distribution Width 15.2 % (11.0-16.0); White Blood Count 5.1 X10*3/uL (4.8-10.8)
[2022-09-26 13:57] LABS: INTERNATIONAL NORM RATIO 3.6 (0.9-1.1)
[2022-09-26 14:00] LABS: Partial Thromboplastin Time 46.2 SEC (26.0-36.4)
[2022-09-26 14:10] LABS: Alanine Aminotransferase 19 U/L (0-40); Albumin Level 3.4 g/dL (3.5-5.0); Alkaline Phosphatase 119 U/L (39-117); Anion Gap 14 (12-20); Aspartate Amino Transferase 24 U/L (5-37); Bilirubin Total 0.8 mg/dL (0.0-1.0); Blood Urea Nitrogen 24 mg/dL (9-16); Calcium 8.6 mg/dL (8.4-10.2); Carbon Dioxide 27 mmol/L (22-29); Chloride 106 mmol/L (96-108); Creatinine Clr Calc Pharmacy 41.4; Estimated Glomerular Filt Rate > 60; Glucose Random 108 mg/dL (60-115); Potassium 4.4 mmol/L (3.3-5.1); Sodium 143 mmol/L (135-145); Total Protein 6.4 g/dL (6.5-8.0)
--- NOTE | 2022-09-26 14:53 | PC.NURSE ---
scalp cleansed with NS and hydrogen peroxide, two hematomas visable on left and right scalp. approx 1cm laceration visualized on over right sided heamtoma. bleeding controlled. open to air, call roman within reach pt alert, oriented, no complaints of pain at this time.
[2022-09-26 16:00] LABS: COVID-19 Test Negative (Negative); IDNOW Serial# 16C4AD1C
--- NOTE | 2022-09-26 16:28 | PHA.MEDREC ---
Pharmacy Consult ? Medication Reconciliation Pharmacy has completed the medication reconciliation. Spoke to patient and patient's spouse Lakshmi ([phone]) who confirmed all meds.
[2022-09-26 18:06] VITALS: BP 152/92; PULSE 87; RESP 20; TEMP 36.7; O2SAT 95
--- NOTE | 2022-09-26 19:47 | PC.NURSE ---
pt awake, sitting upright in bed. currently eating dinner. pt has been sleeping throughout shift. pt continues to need encouragement to keep nc in place. resp even and unlabored, vss, call roman within reach WCT[facility]
--- NOTE | 2022-09-26 19:48 | PC.NURSE ---
pt denies any pain at this time
--- NOTE | 2022-09-26 20:11 | PC.NURSE ---
replaced NC on pt, reminded pt not to remove it. pt verbalizes understanding
[2022-09-26] MEDS: Metoprolol Succinate ER 25 MG TAB.ER.24H PO (20:34)
[2022-09-26] MEDS: Sertraline HCL 50 MG TABLET PO (20:34)
[2022-09-26] MEDS: Cholecalciferol (Vitamin D3) 25 MCG TABLET PO (20:39)
--- NOTE | 2022-09-26 20:39 | PC.NURSE ---
pt oob to bathroom ambulating with steady gait- pt sitting in triage recliner states he is visiting for the night redirected pt to his room, recliner placed in room, Nasal canula replaced. reminded pt to leave in place. medicated per OCT call roman within reach
[2022-09-26 20:50] VITALS: BP 126/87; PULSE 98; RESP 18; O2SAT 94
--- NOTE | 2022-09-26 20:53 | PC.NURSE ---
late entry: pt ate 40% of dinner 8oz of water
[2022-09-26] MEDS: Memantine HCl 5 MG TABLET PO (21:14)
[2022-09-26] MEDS: carBAMazepine 200 MG TABLET PO (21:14)
--- NOTE | 2022-09-26 22:28 | PC.NURSE ---
report given to ED overflow, Kayla URIBE. pt willl be going to ED Overflow 7
--- NOTE | 2022-09-26 22:46 | PC.NURSE ---
I received the pt at 22:47, pt was able to ambulate to the hospital bed. Pt was placed near the nurse's station due to history of falls. Pt was steady on his feet, A&Ox4, reported no pain or shortness of breath. Pt is comfortable in bed with the TV on at the moment.
[2022-09-27] VITALS: BP 131/76; PULSE 97; RESP 16; TEMP 36.5; O2SAT 94
[2022-09-27 06:00] VITALS: BP 140/81; PULSE 99; RESP 16; TEMP 36.3; O2SAT 98
--- NOTE | 2022-09-27 06:31 | MHC.EDTECH ---
Pt 1x assisted with repositioning in bed. Call roman in reach
[2022-09-27] MEDS: Furosemide 20 MG TABLET PO (07:47)
[2022-09-27] MEDS: Cholecalciferol (Vitamin D3) 25 MCG TABLET PO (07:48)
[2022-09-27] MEDS: Aspirin Enteric Coated 81 MG TABLET.DR PO (07:48)
[2022-09-27] MEDS: Ferrous Sulfate 324 MG TABLET.DR PO (07:48)
[2022-09-27] MEDS: Memantine HCl 5 MG TABLET PO (09:38)
[2022-09-27] MEDS: carBAMazepine 200 MG TABLET PO (09:38)
[2022-09-27] MEDS: Losartan Potassium 25 MG TABLET PO (09:38)
[2022-09-27] MEDS: Metoprolol Succinate ER 25 MG TAB.ER.24H PO (09:38)
[2022-09-27 10:26] LABS: INTERNATIONAL NORM RATIO 2.5 (0.9-1.1); Prothrombin Time 30.1 SEC (10.0-13.1)
--- NOTE | 2022-09-27 11:35 | PC.NURSE ---
INTRODUCED SELF TO PT, PT IN NAD, RESP EVEN, NONLABOURED. FAMILY AT BEDSIDE WITH ADDT'L QUESTIONS ABOUT PLAN FOR CARE. PA TO BEDSIDE FOR FURTHER CLARIFICATION AND DISCUSSION.
[2022-09-27] MEDS: Donepezil HCl 10 MG TABLET PO (12:17)
[2022-09-27 12:38] VITALS: BP 125/83; PULSE 105; RESP 18; TEMP 37.1; O2SAT 96
--- NOTE | 2022-09-27 13:48 | MHC.CM.ED ---
Addendum entered by Alexandra Stringer 09/27/22 14:00: from [facility] on site to meet with patient and . Original Note: Received case management consult overnight the weekend. Patient came to the ER due to a fall. Work up essentially negative. Physical therapy eval completed. Home therapy is recommended. Met with patient, Lakshmi and an additional family member in regards to discharge planning. Patient has advanced dementia, is pleasantly confused, but unable to participate in assessment. Patient lives with Lkashmi, ambulates independently and had no services prior to coming to the hospital. Lakshmi aware patient passed physical therapy eval and Medicare will not authorize short term rehab. Respite and private pay options discussed. Lakshmi doesn't have the funds avaiable for this. Patient has a supplemental insurance that cover 100% of home care costs. T/W explained Lakshmi would have to speak with that insurance company to see what services they will cover and which agency they are contracted with. Lakshmi interested in [facility] Informational meeting due to patient having advanced dementia and oxygen requiring asbestosis. Referral made to [facility] for bedside informational meeting. Continue to monitor for d/c needs.
== END 2022-09-27 17:14 | disposition home or self-care (01) ==
PROVIDERS: Physician Assistant Medical; Emergency Provider Emergency Medicine Emergency Medical Services; PCP Internal Medicine
DX: S01.91XA Laceration without foreign body of unspecified part of head, initial encounter (principal); R51.9 Headache, unspecified; M54.2 Cervicalgia; R26.81 Unsteadiness on feet; M54.6 Pain in thoracic spine; W01.0XXA Fall on same level from slipping, tripping and stumbling without subsequent striking against object, initial encounter; Y93.9 Activity, unspecified; Y92.9 Unspecified place or not applicable; Y99.9 Unspecified external cause status; Z20.828 Contact with and (suspected) exposure to other viral communicable diseases; Z20.822 Contact with and (suspected) exposure to COVID-19; Z79.01 Long term (current) use of anticoagulants; Z79.899 Other long term (current) drug therapy; Z91.81 History of falling
CPT/HCPCS: 36415; 70450; 71250; 72125; 74176; 80053; 85025; 85610; 85730; 87635; 97161; 99284